=== PATIENT | female | born 2000 | race Caucasian/White ===

== ENCOUNTER 2021-02-14 13:13 | Emergency (ER) | payer OTHER ==
[~2021-02-14 13:13] MED LIST: IBUPROFEN600 MG PO
[2021-02-14 14:43] LABS: RED BLOOD COUNT 4.85 M/UL (4.00-5.10); WHITE BLOOD COUNT 12.9 K/UL (4.5-11.0)
[2021-02-14 15:06] LABS: BUN/CREATININE RATIO 10 (0-10)
[2021-02-14] MEDS ORDERED: PROTONIX40 MG PO (16:06)
[2021-02-14] MEDS ORDERED: ZOFRAN4 MG PO (16:06)
[2021-02-14] MEDS ORDERED: ZYRTEC10 MG PO (16:06)
== END 2021-02-14 16:15 | disposition home or self-care (01) ==
LOC: ER1 13:13
PROVIDERS: Preventive Medicine Occupational Medicine
DX: K21.9 Gastro-esophageal reflux disease without esophagitis (principal)
CPT/HCPCS: 80053; 81001; 83690; 84703; 85025; 86140; 87086; 96374; 99284; J2405; J7030

== ENCOUNTER → 2021-04-03 | Outpatient (CLI) | payer OTHER ==
[~2021-04-03] MED LIST changes: +PROTONIX40 MG PO; +ZOFRAN4 MG PO; +ZYRTEC10 MG PO
== END ==
LOC: LAB 10:25
DX: D89.89 Other specified disorders involving the immune mechanism, not elsewhere classified (principal); M06.9 Rheumatoid arthritis, unspecified; M25.50 Pain in unspecified joint; R79.82 Elevated C-reactive protein (CRP)
CPT/HCPCS: 36415

== ENCOUNTER 2021-08-26 12:02 | Emergency (ER) | payer OTHER ==
[2021-08-26 12:36] LABS: HEMOGLOBIN 15.4 gm/dl (12.3-15.3); RED BLOOD COUNT 5.37 M/UL (4.00-5.10); WHITE BLOOD COUNT 13.2 K/UL (4.5-11.0)
[2021-08-26 12:58] LABS: BUN/CREATININE RATIO 7 (0-10)
[2021-08-26] MEDS ORDERED: CEPHALEXIN500 M1 PO (15:50)
== END 2021-08-26 16:06 | disposition home or self-care (01) ==
LOC: ER1 12:02
PROVIDERS: Nurse Practitioner
DX: O23.41 Unspecified infection of urinary tract in pregnancy, first trimester (principal); O99.331 Smoking (tobacco) complicating pregnancy, first trimester; F17.200 Nicotine dependence, unspecified, uncomplicated; Z3A.01 Less than 8 weeks gestation of pregnancy
CPT/HCPCS: 76817; 80053; 81001; 84702; 85025; 99284

== ENCOUNTER 2021-12-20 12:49 | Emergency (ER) | payer OTHER ==
[~2021-12-20 12:49] MED LIST changes: +CEPHALEXIN500 M1 PO
[2021-12-20 13:49] LABS: HEMOGLOBIN 15.5 gm/dl (12.3-15.3); RED BLOOD COUNT 5.24 M/UL (4.00-5.10); WHITE BLOOD COUNT 18.1 K/UL (4.5-11.0)
[2021-12-20 14:06] LABS: BUN/CREATININE RATIO 9 (0-10)
[2021-12-20] MEDS ORDERED: PHENERGAN 25 MG25 M1 PO (15:31)
== END 2021-12-20 15:36 | disposition home or self-care (01) ==
LOC: ER1 12:49
PROVIDERS: Physician Assistant
DX: O21.0 Mild hyperemesis gravidarum (principal); O99.331 Smoking (tobacco) complicating pregnancy, first trimester; F17.200 Nicotine dependence, unspecified, uncomplicated; Z3A.01 Less than 8 weeks gestation of pregnancy
CPT/HCPCS: 80053; 81001; 84702; 85025; 96374; 99284; J2550